=== PATIENT | male | born 1990 | race Caucasian/White ===

== ENCOUNTER 2021-08-16 16:23 | Emergency (ER) | payer MEDICAID ==
[~2021-08-16] VITALS: Ht 175.3 cm; Wt 73.0 kg
[2021-08-16 23:23] VITALS: BP 129/84
== END 2021-08-16 23:24 | disposition home or self-care (01) ==
LOC: ER 16:23
DX: R06.00 Dyspnea, unspecified (principal)
CPT/HCPCS: 93005; 99283